=== PATIENT | female | born 1945 | race Asian ===

== ENCOUNTER 2018-11-09 11:51 | Inpatient (IN) | payer MEDICARE, OTHER ==
[~2018-11-09] VITALS: Ht 162.6 cm; Wt 65.8 kg
[~2018-11-09 11:51] MED LIST: UNOBMED
[2018-11-09 12:06] VITALS: BP 147/90
--- NOTE | 2018-11-09 12:07 | NUR ---
ED Nurse Note:pt. was BIBA from home with abdomnal distention, hx of liver CA,pt. gets abd drainage done monthly or more often, pt. A/Ox4 VSS, seen by ER MD,
[2018-11-09] MEDS ORDERED: Morphine Sulfate 4mg/ml Inj (IV USE ONLY) IVP ONE (12:15)
--- NOTE | 2018-11-09 12:15 | Emergency Room Report ---
History of Present Illness General Chief Complaint: Abdominal Pain Source: Patient Present Illness HPI Patient presents with complaints of abdominal pain Mid epigastric Family reports the patient has liver cancer with ascites She has been getting the fluid drained on a weekly basis recently Last seizure was last week patient also complains of some shortness of breath sensation Denies any vomiting or diarrhea denies any fevers or chills patient usually has her procedures performed at [facility] Allergies: Coded Allergies: No Known Allergies (Unverified , 11/09/18) Patient History Past Medical History: see triage record Pertinent Family History: none Last Menstrual Period: n/a Reviewed Nursing Documentation: PMH: Agreed; PSxH: Agreed Nursing Documentation-PMH Past Medical History: No History, Except For Hx Hypertension: Yes Review of Systems All Other Systems: negative except mentioned in HPI Physical Exam Vital Signs Date Time Temp Pulse Resp B/P (MAP) Pulse Ox O2 Delivery O2 Flow Rate FiO2 11/09/18 11:44 98.4 62 18 150/97 100 Room Air Sp02 EP Interpretation: reviewed, normal General Appearance: mild distress - In pain Head: normocephalic, atraumatic Eyes: bilateral eye PERRL, bilateral eye EOMI ENT: hearing grossly normal, normal pharynx, TMs + canals normal, uvula midline Neck: full range of motion, supple, no meningismus, no bony tend Respiratory: lungs clear, normal breath sounds, no rhonchi, no respiratory distress, no retraction, no accessory muscle use Cardiovascular #1: normal peripheral pulses, regular rate, rhythm, no edema, no gallop, no JVD, no murmur Gastrointestinal: normal bowel sounds, non tender, soft - However there is obvious ascites, no mass, no organomegaly, non-distended, no guarding, no hernia , no pulsatile mass, no rebound Genitourinary: no CVA tenderness Musculoskeletal: normal inspection Neurologic: oriented x3, responsive, hospital plan administrator III-XII nml as tested, motor strength/ tone normal, sensory intact Psychiatric: mood/affect normal Skin: normal color, no rash, warm/dry, palpation normal Lymphatic: normal inspection, no adenopathy Medical Decision Making Diagnostic Impression: Primary Impression: Ascites ER Course With the history exam and presentation, multiple differentials considered, including but not limited to appendicitis, gastritis, cholecystitis, diverticulitis SBP also needs to be required given the patient's previous paracentesis At this time abdomen does show clear evidence of ascites however is not taut Patient's respirations are appropriate however she does complain of some short of breath And will require further inpatient intervention and possible paracentesis as needed Labs Test 11/09/18 12:28 11/09/18 13:30 White Blood Count 9.4 K/UL (4.8-10.8) Red Blood Count 4.36 M/UL (4.20-5.40) Hemoglobin 12.7 G/DL (12.0-16.0) Hematocrit 37.8 % (37.0-47.0) Mean Corpuscular Volume 87 FL (80-99) Mean Corpuscular Hemoglobin 29.0 PG (27.0-31.0) Mean Corpuscular Hemoglobin Concent 33.5 G/DL (32.0-36.0) Red Cell Distribution Width 14.5 % (11.6-14.8) Platelet Count 131 K/UL (150-450) Mean Platelet Volume 5.2 FL (6.5-10.1) Neutrophils (%) (Auto) 82.7 % (45.0-75.0) Lymphocytes (%) (Auto) 10.7 % (20.0-45.0) Monocytes (%) (Auto) 6.2 % (1.0-10.0) Eosinophils (%) (Auto) 0.0 % (0.0-3.0) Basophils (%) (Auto) 0.4 % (0.0-2.0) Prothrombin Time 11.4 SEC (9.30-11.50) Prothromb Time International Ratio 1.1 (0.9-1.1) Activated Partial Thromboplast Time 22 SEC (23-33) Sodium Level 129 MMOL/L (136-145) Potassium Level 5.4 MMOL/L (3.5-5.1) Chloride Level 100 MMOL/L (98-107) Carbon Dioxide Level 24 MMOL/L (21-32) Anion Gap 6 mmol/L (5-15) Blood Urea Nitrogen 29 mg/dL (7-18) Creatinine 1.0 MG/DL (0.55-1.30) Estimat Glomerular Filtration Rate mL/min (>60) Glucose Level 125 MG/DL (74-106) Calcium Level 9.2 MG/DL (8.5-10.1) Total Bilirubin 0.7 MG/DL (0.2-1.0) Aspartate Amino Transf (AST/SGOT) 147 U/L (15-37) Alanine Aminotransferase (ALT/SGPT) 89 U/L (12-78) Alkaline Phosphatase 169 U/L (46-116) Total Protein 6.5 G/DL (6.4-8.2) Albumin 2.3 G/DL (3.4-5.0) Globulin 4.2 g/dL Albumin/Globulin Ratio 0.5 (1.0-2.7) Lipase 117 U/L (73-393) Urine Color Brown Urine Appearance Slightly cloudy Urine pH 5 (4.5-8.0) Urine Specific [place] 1.025 (1.005-1.035) Urine Protein 1+ (NEGATIVE) Urine Glucose (UA) Negative (NEGATIVE) Urine Ketones 1+ (NEGATIVE) Urine Blood 1+ (NEGATIVE) Urine Nitrite Positive (NEGATIVE) Urine Bilirubin Negative (NEGATIVE) Urine Urobilinogen Normal MG/DL (0.0-1.0) Urine Leukocyte Esterase 2+ (NEGATIVE) Urine RBC 2-4 /HPF (0 - 2) Urine WBC 2-4 /HPF (0 - 2) Urine Squamous Epithelial Cells Few /LPF (NONE/OCC) Urine Bacteria Few /HPF (NONE) Rhythm Strip Diag. Results EP Interpretation: yes Rate: 88 Rhythm: NSR, no PVC's, no ectopy Last Vital Signs Date Time Temp Pulse Resp B/P (MAP) Pulse Ox O2 Delivery O2 Flow Rate FiO2 11/09/18 12:06 98.4 60 18 147/90 100 Room Air Status: improved Disposition: ADMITTED INPATIENT Condition: Serious GlennBarbara giraldo Nov 09, 2018 12:15
[2018-11-09 12:43] LABS: BASOPHILS % (AUTO) 0.4 % (0.0-2.0); HEMATOCRIT 37.8 % (37.0-47.0); HEMOGLOBIN 12.7 G/DL (12.0-16.0); LYMPHOCYTES % (AUTO) 10.7 % (20.0-45.0); MEAN CORPUSCULAR VOLUME 87 FL (80-99); MONOCYTES % (AUTO) 6.2 % (1.0-10.0); NEUTROPHILS % (AUTO) 82.7 % (45.0-75.0); PLATELET COUNT 131 K/UL (150-450); RED BLOOD COUNT 4.36 M/UL (4.20-5.40); RED CELL DISTRIBUTION WIDTH 14.5 % (11.6-14.8); WHITE BLOOD COUNT 9.4 K/UL (4.8-10.8)
[2018-11-09 13:01] LABS: ANION GAP 6 mmol/L (5-15); BLOOD UREA NITROGEN 29 mg/dL (7-18); CALCIUM 9.2 MG/DL (8.5-10.1); CARBON DIOXIDE 24 MMOL/L (21-32); CHLORIDE 100 MMOL/L (98-107); INR 1.1 (0.9-1.1); POTASSIUM 5.4 MMOL/L (3.5-5.1); SODIUM 129 MMOL/L (136-145)
[2018-11-09 13:08] LABS: ALANINE AMINOTRANSFERASE 89 U/L (12-78); ALBUMIN 2.3 G/DL (3.4-5.0); ALBUMIN/GLOBULIN RATIO 0.5 (1.0-2.7); ALKALINE PHOSPHATASE 169 U/L (46-116); ASPARTATE AMINO TRANSFERASE 147 U/L (15-37); BILIRUBIN,TOTAL 0.7 MG/DL (0.2-1.0)
[2018-11-09 13:18] VITALS: BP 113/49
--- NOTE | 2018-11-09 13:31 | NUR ---
ED Nurse Note:pt. has some small scabs on right lower abdomen from abdominal dranage, also her BLE swallen due to liver failure
--- NOTE | 2018-11-09 13:32 | NUR ---
ED Nurse Note:perianal redness noted also, pt. is continent
[2018-11-09] MEDS ORDERED: SODIUM CHLORIDE1 GM PO (13:47)
[2018-11-09] MEDS ORDERED: NADOLOL40 MG ORAL (13:47)
[2018-11-09] MEDS ORDERED: SODIUM BICARBO650 MG PO (13:47)
[2018-11-09 13:54] VITALS: BP 108/48
--- NOTE | 2018-11-09 13:55 | NUR ---
ED Nurse Note:urine sent to labs, no signs of distress noted ,wating for med surge bed
[2018-11-09 13:58] LABS: APPEARANCE,URINE SLIGHTLY CLOUDY; BILIRUBIN, URINE NEGATIVE (NEGATIVE); COLOR,URINE BROWN; GLUCOSE, URINE (UA) NEGATIVE (NEGATIVE); KETONES,URINE 1+ (NEGATIVE); LEUKOCYTE ESTERASE ,URINE 2+ (NEGATIVE); NITRITE,URINE POSITIVE (NEGATIVE); PH,URINE 5 (4.5-8.0); PROTEIN,URINE 1+ (NEGATIVE); UROBILINOGEN,URINE NORMAL MG/DL (0.0-1.0)
[2018-11-09] MEDS ORDERED: Sodium Polystyrene Sulfonate 15gm Powder ORAL ONE (14:15)
[2018-11-09 14:54] VITALS: BP 130/54
--- NOTE | 2018-11-09 15:05 | NUR ---
ED Nurse Note:pt. was taken to [facility] ,report given to RN
[2018-11-09 15:45] VITALS: BP 128/58
--- NOTE | 2018-11-09 15:45 | NUR ---
nurse notes received patient from ED [facility] patient awake, alert, oriented x4, no sign of distress, on going NS bolus infusing well,c/o abdominal pain but tolerable, admission routine care rendered , oriented to the unit, plan of care was discussed, verbalized understanding , 4 P;s in progress, call light w/n reach , will continue o monitor patient condition, will call PMD for admission orders teresa george
--- NOTE | 2018-11-09 17:16 | NUR ---
CHARGE NURSE NOTES: admittion orders not received. Called Dr. Jensen's office and left a second message reg the admission orders
--- NOTE | 2018-11-09 18:06 | NUR ---
CHARGE NURSE NOTES: CAlled Dr Jensen and left another message reg the admission orders. Nursing supervisor esters and emulsifiers in notified
--- NOTE | 2018-11-09 18:58 | NUR ---
NURSE NOTES: Per Dr Jensen order, US guided paracentesis was ordered. Talked to the radiology. Can not be done over the weekend. Let primary RN know, Dr Jensen notified
[2018-11-09] MEDS: Pantoprazole Inj IVP SCH (19:30)
--- NOTE | 2018-11-09 19:59 | NUR ---
NURSE NOTES: Pt received with at bedside looking for pain medication, bed in lowest position, call light within reach, will continue to monitor
[2018-11-09 20:00] VITALS: BP 131/74
[2018-11-09] MEDS: Morphine Sulfate 4mg/ml Inj (IV USE ONLY) IVP PRN (20:04)
[2018-11-09] MEDS ORDERED: Sodium Chloride 1gm Tab ORAL SCH (21:00)
[2018-11-09] MEDS: Heparin 5000 units/ml inj SUBQ SCH (22:00)
--- NOTE | 2018-11-09 23:30 | History and Physical Report ---
DATE OF ADMISSION: 11/09/2018 HISTORY OF PRESENT ILLNESS: This is an elderly 73-year-old patient came with ascites and abdominal pain. PAST MEDICAL HISTORY: Significant for pancreatitis and hypertension. MEDICATIONS: See the list. ALLERGIES: NKA. FAMILY HISTORY: Noncontributory. SOCIAL HISTORY: Lives at home. PHYSICAL EXAMINATION: GENERAL: This is elderly Monegasque female, currently comfortable in the bed. VITAL SIGNS: Blood pressure is 128/58, pulse 65, respirations 18, and temperature is 97.2. HEENT: NAD. CHEST: Bilateral decreased breath sounds. CARDIOVASCULAR: Regular rhythm. ABDOMEN: Distended. Positive bowel sounds. EXTREMITIES: CCE. LABORATORY DATA: Potassium is high. Sodium 129, potassium 5.4, BUN 29, creatinine 1, and glucose 125. LFTs are high. ASSESSMENT: 1. Ascites. 2. Abdominal pain. 3. UTI. PLAN: 1. We will admit on medical floor. 2. Start IV fluid, Zofran, and morphine. 3. Consider GI consult and follow up the labs. Franki Jensen M.D. DR: ROZ JOB#: [id number] CC:
[2018-11-10] VITALS: BP 110/59
[2018-11-10 04:00] VITALS: BP 108/63
[2018-11-10 08:00] VITALS: BP 118/61
[2018-11-10 08:12] LABS: BASOPHILS % (AUTO) 0.6 % (0.0-2.0); EOSINOPHILS % (AUTO) 0.2 % (0.0-3.0); HEMOGLOBIN 11.9 G/DL (12.0-16.0); LYMPHOCYTES % (AUTO) 11.1 % (20.0-45.0); MEAN CORPUSCULAR VOLUME 87 FL (80-99); MONOCYTES % (AUTO) 6.6 % (1.0-10.0); NEUTROPHILS % (AUTO) 81.4 % (45.0-75.0); PLATELET COUNT 130 K/UL (150-450); RED BLOOD COUNT 4.12 M/UL (4.20-5.40); RED CELL DISTRIBUTION WIDTH 15.1 % (11.6-14.8); WHITE BLOOD COUNT 7.6 K/UL (4.8-10.8)
--- NOTE | 2018-11-10 08:12 | NUR ---
NURSE NOTES: RN received pt sleeping in bed. No acute distress or SOB. Bed in low locked position. Call light within reach. Will continue plan of care.
--- NOTE | 2018-11-10 08:12 | NUR ---
HAND-OFF: Report given to ELVIA Sales.
--- NOTE | 2018-11-10 08:50 | NUR ---
CHARGE NURSE NOTES: Left another message to Dr Jensen notifying that Paracentesis will not be done until Sunday11/11/18
[2018-11-10 08:53] LABS: ALANINE AMINOTRANSFERASE 73 U/L (12-78); ALBUMIN 1.9 G/DL (3.4-5.0); ALBUMIN/GLOBULIN RATIO 0.5 (1.0-2.7); ALKALINE PHOSPHATASE 130 U/L (46-116); ANION GAP 5 mmol/L (5-15); ASPARTATE AMINO TRANSFERASE 132 U/L (15-37); BILIRUBIN,TOTAL 0.7 MG/DL (0.2-1.0); BLOOD UREA NITROGEN 28 mg/dL (7-18); CALCIUM 8.5 MG/DL (8.5-10.1); CARBON DIOXIDE 23 MMOL/L (21-32); CHLORIDE 102 MMOL/L (98-107); CHOLESTEROL 148 MG/DL (< 200); CREATINE KINASE 59 U/L (26-308); CREATININE 0.9 MG/DL (0.55-1.30); GAMMA GLUTAMYL TRANSPEPTIDASE 143 U/L (5-85); HDL CHOLESTEROL 36 MG/DL (40-60); PHOSPHORUS 3.8 MG/DL (2.5-4.9); POTASSIUM 4.6 MMOL/L (3.5-5.1); SODIUM 130 MMOL/L (136-145); TRIGLYCERIDES 86 MG/DL (30-150)
[2018-11-10] MEDS: Heparin 5000 units/ml inj SUBQ SCH ×2 (09:00→20:54)
[2018-11-10] MEDS: Pantoprazole Inj IVP SCH ×2 (09:00→09:50)
[2018-11-10] MEDS ORDERED: Sodium Bicarbonate 650mg Tab ORAL SCH (09:00)
--- NOTE | 2018-11-10 09:55 | NUR ---
NURSE NOTES: Pt refused Protonix at administration. Container alreadyopen / wasted in med bin.
[2018-11-10 12:00] VITALS: BP 120/56
[2018-11-10] MEDS: Morphine Sulfate 4mg/ml Inj (IV USE ONLY) IVP PRN ×2 (12:53→23:49)
--- NOTE | 2018-11-10 15:00 | NUR ---
NURSE NOTES: RN advised pt to turn every 2 hours to relieve pressure from sacral area. RN additionally asked pt to turn on to assess rash on back / buttocks. Pt uncomfortable on side and refused to turn. RN explained to pt's daughter turning is advised to relieve pressure and prevent pressure ulcers. Charge nurse made aware that RN is unable to turn pt due to pt refusal.
[2018-11-10 16:00] VITALS: BP 121/62
--- NOTE | 2018-11-10 18:30 | Consultation ---
Consult Note Consult Note asked to eval at the request of Dr Jensen for low Na Patient presents with complaints of abdominal pain Mid epigastric Family reports the patient has liver cancer with ascites She has been getting the fluid drained on a weekly basis recently Last seizure was last week patient also complains of some shortness of breath sensation Denies any vomiting or diarrhea denies any fevers or chills patient usually has her procedures performed at [facility] No Known Allergies (Unverified , 11/09/18) Past Medical History: No History, Except For Hx Hypertension: Yes daughter in law at bedside patient in mild distress massive ascitis Assessment/Plan HypoNatremia likely due to Liver disease, Ascitis liver Ca by history Anemia High Uric Acid Low folate High TSH plan: Per GI Urine studies monitor lytes Folate Synthroid Luciano Servin MD Nov 10, 2018 18:30
--- NOTE | 2018-11-10 18:45 | Consultation ---
DATE OF CONSULTATION: 11/10/2018 GASTROENTEROLOGY CONSULTATION CONSULTING PHYSICIAN: August Askew M.D. REFERRING PHYSICIAN: Tristan Jensen M.D. CHIEF COMPLAINT: Ascites. HISTORY OF PRESENT ILLNESS: The patient is a 73-year-old female with diagnosis of liver cancer followed at [facility]. Apparently, chemoembolization, but the patient was not a candidate. She is having multiple ascites. Last paracentesis was over a week ago. She came to the hospital complaining of shortness of breath, increased abdominal girth, and unable to breathe. PAST MEDICAL HISTORY: 1. History of liver cancer. 2. Hypertension. ALLERGY: No known drug allergies. MEDICATIONS: Please see medication reconciliation list. SOCIAL HISTORY: The patient denies any tobacco, alcohol, or drug abuse. FAMILY HISTORY: Noncontributory. REVIEW OF SYSTEMS: A 10-point review of systems was performed and pertinent positives in HPI. PHYSICAL EXAMINATION: VITAL SIGNS: Temperature 98.1, pulse 63, respirations 16, and blood pressure 108/63. HEENT: Normocephalic and atraumatic. Sclerae anicteric. NECK: Supple. No evidence of lymphadenopathy. CARDIOVASCULAR: Regular rate and rhythm. Plus S1 and S2. No obvious murmur. LUNGS: Decreased breath sounds bilaterally based on the supine exam. ABDOMEN: Soft. Abdomen is distended. There was evidence of ascites. No rebound. No guarding. No peritoneal sign. EXTREMITIES: Bilateral lower extremity edema. LABORATORY DATA: Sodium 129, potassium 5.4, BUN 29, and creatinine 1.0. Glucose is 125. AST 147, AST 89, and alkaline phosphatase 169. ASSESSMENT AND PLAN: The patient is a 73-year-old female with ascites. The patient apparently has low sodium, so she was taken off of diuretics. Actually, at one point, she was given sodium supplement and now she is taking sodium. It is interesting that the patient has a low sodium diet and that she is taking sodium tablets. Anyway, the patient would need a paracentesis given her low sodium and high potassium. We are going to hold off giving any diuretics. We will discontinue the Lasix, we will discontinue the sodium supplements oral, hold off on nadolol that she was getting given the pulse of 60 and blood pressure is 108. So, we are going to hold off on any of her medication at this time. We will just going to give a dose of albumin IV and wait for paracentesis to be done for tomorrow. We will check the labs tomorrow. The patient to follow up with [facility] after discharge for followup for her liver cancer. I want to thank Dr. Jensen for this kind referral. August Askew M.D. DR: NICK JOB#: [id number] CC:
--- NOTE | 2018-11-10 19:04 | NUR ---
HAND-OFF: Report given to ELVIA Carr.
--- NOTE | 2018-11-10 19:43 | NUR ---
NURSE NOTES: Pt received with family member at bedside and asking to get out of bed and into a chair, assisted to the chair with feet elevated, pt able to make needs known, asked about POLST but patient said "not to worry about that and she does not think about dying." will continue to monitor
[2018-11-10 20:00] VITALS: BP 112/57
--- NOTE | 2018-11-10 23:00 | Progress Note ---
DATE: 11/10/2018 SUBJECTIVE: This is a 73-year-old Korean female, currently in the bed, more awake than yesterday. Daughter is on the bedside. She is still having some abdominal pain as well as feeling discomfort. PHYSICAL EXAMINATION: GENERAL: The patient is an elderly lady, sitting in the bed. VITAL SIGNS: Blood pressure 100/40, pulse 94, respirations 18. SKIN: Good skin turgor. HEENT: NAD. CHEST: Bilaterally clear. CARDIOVASCULAR: Regular rhythm. ABDOMEN: Distended. Positive bowel sounds. EXTREMITIES: CCE. NEUROLOGIC: Generalized weakness. Exam deferred. LABORATORY DATA: Potassium is 5.4. ASSESSMENT: 1. Ascites. 2. Metastatic liver cancer. 3. Leg edema. 4. Abdominal pain. 5. Generalized weakness. PLAN: We will currently continue Lasix. Continue supportive treatment and Nephrology consult. Continue morphine pills three times a day and consider a paracentesis tomorrow. GI as well as Nephrology discussed with the daughter at the bedside. Franki Jensen M.D. DR: JOSE ALFREDO JOB#: [id number] CC:
[2018-11-11] VITALS: BP 108/61
[2018-11-11 04:00] VITALS: BP 102/53
[2018-11-11 06:11] LABS: BASOPHILS % (AUTO) 0.2 % (0.0-2.0); HEMATOCRIT 26.7 % (37.0-47.0); HEMOGLOBIN 8.6 G/DL (12.0-16.0); LYMPHOCYTES % (AUTO) 12.4 % (20.0-45.0); MEAN CORPUSCULAR VOLUME 88 FL (80-99); MONOCYTES % (AUTO) 6.4 % (1.0-10.0); NEUTROPHILS % (AUTO) 80.9 % (45.0-75.0); PLATELET COUNT 114 K/UL (150-450); RED BLOOD COUNT 3.03 M/UL (4.20-5.40); RED CELL DISTRIBUTION WIDTH 15.4 % (11.6-14.8); WHITE BLOOD COUNT 7.5 K/UL (4.8-10.8)
[2018-11-11 06:18] LABS: INR 1.2 (0.9-1.1)
[2018-11-11 06:29] LABS: ALANINE AMINOTRANSFERASE 60 U/L (12-78); ALBUMIN 1.9 G/DL (3.4-5.0); ALBUMIN/GLOBULIN RATIO 0.6 (1.0-2.7); ALKALINE PHOSPHATASE 114 U/L (46-116); ANION GAP 7 mmol/L (5-15); ASPARTATE AMINO TRANSFERASE 136 U/L (15-37); BILIRUBIN,TOTAL 0.6 MG/DL (0.2-1.0); BLOOD UREA NITROGEN 37 mg/dL (7-18); CALCIUM 8.3 MG/DL (8.5-10.1); CARBON DIOXIDE 22 MMOL/L (21-32); CHLORIDE 104 MMOL/L (98-107); POTASSIUM 4.7 MMOL/L (3.5-5.1); SODIUM 133 MMOL/L (136-145)
[2018-11-11 06:32] LABS: PHOSPHORUS 3.6 MG/DL (2.5-4.9)
--- NOTE | 2018-11-11 07:21 | NUR ---
HAND-OFF: Report given to ELVIA Sales.
--- NOTE | 2018-11-11 07:21 | NUR ---
NURSE NOTES: RN received pt resting in bed. No acute distress or SOB. Plan of care for today is paracentesis. US called in AM and stated that procedure will likely take place in AM. RN gave pt update. Bed in low, locked position, call light within reach. Will continue plan of care.
[2018-11-11 08:00] VITALS: BP 119/60
--- NOTE | 2018-11-11 08:30 | NUR ---
NURSE NOTES: RN unable to assess pt's back; pt self positioning for comfort, refused to turn for assessment.
--- NOTE | 2018-11-11 08:44 | NUR ---
NURSE NOTES: Pt left floor in stable condition for procedure.
--- NOTE | 2018-11-11 08:49 | NUR ---
MINING ANALYSTMANGANESE BREAKER 73 Y/O FEMALE BIBA FROM HOME [place] [facility] CC:ABDOMINAL PAIN SI:LIVER FAILURE . ASCITES . ABDOMINAL PAIN VS: BP 150/97, P 62, T 98.4, RR 18, SpO2 100 RBC 4.12, Hgb 11.9, Hct 36.0, Na 130, BUN 28, AST 132, ALK PHOS 130 IS:ALBUMIN HUMAN 100ml IV MORPHINE SILFATE 4mg IVP ZOFRAN 4mg IVP KAYEXALATE 30gm NS x1L IV LASIX 20mg IV ADMITTED TO MED/SURG DCP: RETURN HOME
[2018-11-11] MEDS: Heparin 5000 units/ml inj SUBQ SCH (09:00)
[2018-11-11] MEDS ORDERED: NADOLOL 40 MG ORAL SCH (09:00)
[2018-11-11] MEDS: Pantoprazole Inj IVP SCH (09:00)
--- NOTE | 2018-11-11 09:29 | Pre-Procedure Note/Attestation ---
Pre-Procedure Note/Attestation Complete Prior to Procedure Planned Procedure: not applicable Procedure Narrative: Paracentesis Indications for Procedure Pre-Operative Diagnosis: ascites Attestation I attest that I discussed the nature of the procedure; its benefits; risks and complications; and alternatives (and the risks and benefits of such alternatives ), prior to the procedure, with the patient (or the patient's legal key account representative). I attest that, if there was a reasonable possibility of needing a blood transfusion, the patient (or the patient's legal key account representative) was given the [facility] standardized written summary, pursuant to the Corbin Bárbara Blood Safety Act ([place] Health and Safety Code # 1645, as amended). I attest that I re-evaluated the patient just prior to the surgery and that there has been no change in the patient's H&P, except as documented below: D/W pts. traci Ferrell by phone Jim Tolentino MD Nov 11, 2018 09:29
--- NOTE | 2018-11-11 10:09 | Brief Operative Note ---
Immediate Post Operative Note Operative Note Pre-op Diagnosis: ascites Procedure: Paracentesis Post-op Diagnosis: same Findings: consistent w/pre-op dx studies Specimen: yes - bloody fluid aspirated, specimen sent to lab Complications: none Fluids: none Implant(s) used?: No Jim Tolentino MD Nov 11, 2018 10:09
--- NOTE | 2018-11-11 10:31 | NUR ---
NURSE NOTES: Pt returned from procedure in stable condition. 5.2 liters removed in paracentesis. RN sent Dr. Jensen a message updating and also notifying that family wants an update on when pt can be discharged. RN awaiting call back.
--- NOTE | 2018-11-11 11:00 | GI Progress Note ---
Assessment/Plan Problems: (1) Liver cancer ICD Codes: C22.9 - Malignant neoplasm of liver, not specified as primary or secondary SNOMED: 25772964 (2) Ascites ICD Codes: R18.8 - Other ascites SNOMED: 607229084 Status: unchanged Status Narrative Discussed with Dr. Askew. Assessment/Plan paracentesis scheduled for today dc lasix and hold nadolol given VS low sodium diet prn transfusions patient to follow up at [facility] for her liver CA electrolyte correction follow labs The patient was seen and examined at bedside and all new and available data was reviewed in the patients chart. I agree with the above findings, impression and plan. (Patient seen earlier today. Signature stamp does not reflect patient encounter time.). - August Askew MD Subjective Gastrointestinal/Abdominal: Reports: abdomen distended Objective Last 24 Hour Vital Signs Date Time Temp Pulse Resp B/P (MAP) Pulse Ox O2 Delivery O2 Flow Rate FiO2 11/11/18 09:00 Room Air 11/11/18 08:00 97.9 69 18 119/60 (79) 97 11/11/18 04:00 97.3 76 17 102/53 (69) 96 11/11/18 00:00 97.6 69 16 108/61 (77) 95 11/10/18 21:00 Room Air 11/10/18 20:00 97.2 74 18 112/57 (75) 95 11/10/18 16:00 98.2 70 16 121/62 (81) 96 11/10/18 13:23 98.4 11/10/18 12:00 98.4 71 16 120/56 (77) 96 Intake and Output 11/10/18 11/11/18 18:59 06:59 Intake Total 360 ml Balance 360 ml Intake Oral 360 ml # Voids 3 4 Laboratory Tests Test 11/11/18 03:45 11/11/18 04:50 Urine Osmolality 643 mOsm/kg (429-449) H Urine Random Sodium < 20 mmol/L (20-110) L White Blood Count 7.5 K/UL (4.8-10.8) Red Blood Count 3.03 M/UL (4.20-5.40) L Hemoglobin 8.6 G/DL (12.0-16.0) L Hematocrit 26.7 % (37.0-47.0) L Mean Corpuscular Volume 88 FL (80-99) Mean Corpuscular Hemoglobin 28.5 PG (27.0-31.0) Mean Corpuscular Hemoglobin Concent 32.4 G/DL (32.0-36.0) Red Cell Distribution Width 15.4 % (11.6-14.8) H Platelet Count 114 K/UL (150-450) L Mean Platelet Volume 5.1 FL (6.5-10.1) L Neutrophils (%) (Auto) 80.9 % (45.0-75.0) H Lymphocytes (%) (Auto) 12.4 % (20.0-45.0) L Monocytes (%) (Auto) 6.4 % (1.0-10.0) Eosinophils (%) (Auto) 0.0 % (0.0-3.0) Basophils (%) (Auto) 0.2 % (0.0-2.0) Prothrombin Time 12.2 SEC (9.30-11.50) H Prothromb Time International Ratio 1.2 (0.9-1.1) H Sodium Level 133 MMOL/L (136-145) L Potassium Level 4.7 MMOL/L (3.5-5.1) Chloride Level 104 MMOL/L (98-107) Carbon Dioxide Level 22 MMOL/L (21-32) Anion Gap 7 mmol/L (5-15) Blood Urea Nitrogen 37 mg/dL (7-18) H Creatinine 1.0 MG/DL (0.55-1.30) Estimat Glomerular Filtration Rate mL/min (>60) Glucose Level 143 MG/DL (74-106) H Calcium Level 8.3 MG/DL (8.5-10.1) L Phosphorus Level 3.6 MG/DL (2.5-4.9) Magnesium Level 2.1 MG/DL (1.8-2.4) Total Bilirubin 0.6 MG/DL (0.2-1.0) Aspartate Amino Transf (AST/SGOT) 136 U/L (15-37) H Alanine Aminotransferase (ALT/SGPT) 60 U/L (12-78) Alkaline Phosphatase 114 U/L (46-116) Ammonia 105 umol/L (11-32) H Total Protein 5.1 G/DL (6.4-8.2) L Albumin 1.9 G/DL (3.4-5.0) L Globulin 3.2 g/dL Albumin/Globulin Ratio 0.6 (1.0-2.7) L Cortisol AM Sample Pending Height (Feet): 5 Height (Inches): 4.00 Weight (Pounds): 145 General Appearance: WD/WN, no apparent distress, alert Cardiovascular: normal rate Respiratory/Chest: normal breath sounds, no respiratory distress Abdominal Exam: normal bowel sounds, non tender, soft, distended, ascites Extremities: non-tender Freddy Shah [employer]ODUCTION [employer] Nov 11, 2018 11:00
--- NOTE | 2018-11-11 11:57 | Nephrology Progress Note ---
Assessment/Plan Problem List: (1) Liver cancer (2) Hyponatremia (3) Hypothyroid (4) Anemia Assessment HypoNatremia likely due to Liver disease, Ascitis liver Ca by history Anemia High Uric Acid Low folate High TSH Plan plan: Per GI Urine studies monitor lytes Folate Synthroid Subjective ROS Limited/Unobtainable: No Constitutional: Reports: malaise Objective Objective Last 24 Hour Vital Signs Date Time Temp Pulse Resp B/P (MAP) Pulse Ox O2 Delivery O2 Flow Rate FiO2 11/11/18 09:00 Room Air 11/11/18 08:00 97.9 69 18 119/60 (79) 97 11/11/18 04:00 97.3 76 17 102/53 (69) 96 11/11/18 00:00 97.6 69 16 108/61 (77) 95 11/10/18 21:00 Room Air 11/10/18 20:00 97.2 74 18 112/57 (75) 95 11/10/18 16:00 98.2 70 16 121/62 (81) 96 11/10/18 13:23 98.4 11/10/18 12:00 98.4 71 16 120/56 (77) 96 Intake and Output 11/10/18 11/11/18 19:00 07:00 Intake Total 360 ml Balance 360 ml Intake Oral 360 ml # Voids 3 4 Laboratory Tests 11/11/18 03:45: Urine Osmolality 643H, Urine Random Sodium < 20L 11/11/18 04:50: White Blood Count 7.5, Red Blood Count 3.03L, Hemoglobin 8.6L, Hematocrit 26.7L , Mean Corpuscular Volume 88, Mean Corpuscular Hemoglobin 28.5, Mean Corpuscular Hemoglobin Concent 32.4, Red Cell Distribution Width 15.4H, Platelet Count 114L, Mean Platelet Volume 5.1L, Neutrophils (%) (Auto) 80.9H, Lymphocytes (%) (Auto) 12.4L, Monocytes (%) (Auto) 6.4, Eosinophils (%) (Auto) 0.0, Basophils (%) (Auto) 0.2, Prothrombin Time 12.2H, Prothromb Time International Ratio 1.2H, Sodium Level 133L, Potassium Level 4.7, Chloride Level 104, Carbon Dioxide Level 22, Anion Gap 7, Blood Urea Nitrogen 37H, Creatinine 1.0, Estimat Glomerular Filtration Rate , Glucose Level 143H, Calcium Level 8.3L, Phosphorus Level 3.6, Magnesium Level 2.1, Total Bilirubin 0.6, Aspartate Amino Transf (AST/SGOT) 136H, Alanine Aminotransferase (ALT/SGPT ) 60, Alkaline Phosphatase 114, Ammonia 105H, Total Protein 5.1L, Albumin 1.9L, Globulin 3.2, Albumin/Globulin Ratio 0.6L, Cortisol AM Sample [Pending] Height (Feet): 5 Height (Inches): 4.00 Weight (Pounds): 145 General Appearance: lethargic Respiratory/Chest: decreased breath sounds Abdomen: distended Luciano Servin MD Nov 11, 2018 11:57
[2018-11-11 12:00] VITALS: BP 100/59
--- NOTE | 2018-11-11 12:07 | NUR ---
NURSE NOTES: Pt confirmed rash on pt's lower back / buttocks is active herpes outbreak. RN left message for Dr. Jensen. Contact isolation on pt's door. Awaiting orders.
--- NOTE | 2018-11-11 12:49 | Diagnostic Imaging Report ---
Indications: Ascites Technique: Ultrasound used to localize optimal puncture site. Sterile prepping and draping . Local anesthesia with 1% lidocaine. Under real-time ultrasound guidance, puncture peritoneal space using paracentesis needle. Stylet removed. Catheter placed to vacuum bottle suction. Total 5.2 liters of grossly bloody fluid aspirated. Patient tolerated procedure well, without immediate complication. Findings: Followup sonography demonstrates complete resolution of peritoneal fluid. Impression: Successful ultrasound-guided paracentesis, yielding 5.2 liters of grossly bloody fluid
[2018-11-11] MEDS ORDERED: Lactulose 20gm/30ml UDC ORAL SCH (13:00)
--- NOTE | 2018-11-11 14:15 | NUR ---
NURSE NOTES: Pt discharged in stable condition. No acute distress or SOB post paracentesis procedure. RN reviewed discharge packet with patient and family. Belongings accounted for with patient and family. IV and arm band removed. Pt accompanied by family at discharge.
--- NOTE | 2018-11-12 10:45 | Progress Note ---
DATE: 11/11/2018 SUBJECTIVE: This is 73-year-old oriented female came with abdominal pain and ascites. The patient was given Lasix. She has diuresed. The patient clinically did better. She is going to go home and follow up as outpatient. DISCHARGE DIAGNOSES: 1. Ascites. 2. Failure to thrive. 3. Metastatic liver CA. DIET: She is on mechanical soft diet including Boost. The patient is mostly bedridden and probably going to take her to [facility]. Franki Jensen M.D. DR: JOSE ALFREDO JOB#: [id number] CC:
--- NOTE | 2018-11-12 12:57 | Discharge Summary ---
Discharge Summary Discharge Summary _ DATE OF ADMISSION: 11/09/1917 DATE OF DISCHARGE: 11/11/2018 DISCHARGED BY: REASON FOR ADMISSION: 73 years old female with past medical history of liver cancer, hepatitis C, hypertension, presented to emergency department with a complaint of epigastric abdominal pain . Per family, patient had liver cancer with ascites. Patient had been having paracentesis on a weekly basis recently. Last paracentesis was last week. Patient was also complained of some shortness of breath. Upon evaluation vital signs were stable , except slightly elevated blood pressure 150/97. Laboratory work-up revealed no leukocytosis, hemoglobin 12.7, hematocrit 37.8, platelet count 131. INR 1.1. Sodium 129, potassium 5.4 chloride 100. BUN 29, creatinine 1.0. Glucose 125. Total bili 0.7, AST 147 ALT 89. Albumin 2.3. EKG revealed sinus rhythm, no acute ischemic changes. Urinalysis revealed +2 leukocyte esterase, no pyuria, few bacteria. Patient admitted for further management. CONSULTANTS: GI specialist Dr. Askew heading saw operator Dr. Servin HOSPITAL COURSE: Patient admitted to medical surgical floor. Nephrology and GI specialist closely followed. Patient subsequently undergone paracentesis , which yielded 5.2 L of grossly bloody ascitic fluid . Patient reported feeling better after paracentesis Supplemental oxygen was on board as needed to keep pulse oximetry above 92%. Pulse oximetry was stable on room air. Hyponatremia work-up initiated. Per heading saw operator, hyponatremia was due to liver disease. Renal parameters and electrolytes were closely monitored, electrolytes further corrected as needed, and nephrotoxins were avoided. Upon discharge sodium 133, potassium 4.7. Anemia work-up revealed low folate level. Patient started on folic acid replacement. TSH elevated. Patient started on Synthroid. Cortisol level appropriate. LFTs were closely monitored , remained at the same range. Patient noted to have ammonia of 105 Patient started on lactulose as per GI specialist. DVT and GI prophylaxis provided. Pain management was addressed. Supportive care provided. Patient initially was on diuretic with close monitoring of volumes and renal parameters . Patient was hypotensive and diuretic stopped . Hemodynamic status was closely monitored. No need for antihypertensive medication at this time. Patient was provided with low-sodium diet. Patient to continue at home sodium bicarbonate pills. Hemoglobin and hematocrit were closely monitored with goal to keep hemoglobin above 7. Prior to discharge hemoglobin 8.6, hematocrit 26.7. Patient follows up at [facility] for liver cancer. Patient clinically stabilized: abdominal pain resolved , able to tolerate diet in small amounts. Patient was ready for discharge home. FINAL DIAGNOSES: Metastatic liver cancer Ascites Status post paracentesis Failure to thrive due to metastatic malignancy Hyponatremia likely due to liver disease Anemia Folate deficiency High TSH Hepatic encephalopathy DISCHARGE MEDICATIONS: See Medication Reconciliation list. DISCHARGE INSTRUCTIONS: Patient was discharged home . Follow up with primary care provider in one week. I have been assigned to dictate discharge summary for this account. I was not involved in the patient's management. Merari Silva NP Nov 12, 2018 12:57
== END 2018-11-11 13:43 | disposition home or self-care (01) | DRG 436 ==
LOC: EDBD 11:51 → EMR 12:10 → 4E 13:51 → EDBEDREQ 14:05
PROC: 0W9G3ZZ Drainage of Peritoneal Cavity, Percutaneous Approach (ICD-10-PCS; principal; 2018-11-11)
DX: C22.9 Malignant neoplasm of liver, not specified as primary or secondary (principal); R18.0 Malignant ascites; C79.9 Secondary malignant neoplasm of unspecified site; E87.1 Hypo-osmolality and hyponatremia; N39.0 Urinary tract infection, site not specified; K72.10 Chronic hepatic failure without coma; R62.7 Adult failure to thrive; D64.9 Anemia, unspecified; E53.8 Deficiency of other specified B group vitamins; E03.9 Hypothyroidism, unspecified; K72.90 Hepatic failure, unspecified without coma
CPT/HCPCS: 36415; 76942; 80053; 80061; 81003; 82140; 82533; 82550; 82607; 82746; 82977; 83036; 83690; 83735; 83880; 83930; 83935; 84100; 84300; 84443; 84550; 85025; 85610; 85730; 86140; 96361; 96374; 96375; 99285; J2405